=== PATIENT | male | born 1955 | race African-American/Black ===

== ENCOUNTER → 2020-07-21 | Outpatient (CLI) | payer OTHER ==
--- NOTE | 2020-07-21 14:47 | RAD ---
EXAM: Right knee, 2 views. HISTORY: Pain. COMPARISON: None. FINDINGS: 2 views of the right knee are obtained. There is minimal tricompartmental spurring. There i s no fracture, dislocation or subluxation. There is trace joint fluid without a significant effusion. IMPRESSION: Minimal right knee osteoarthritis. Electronically signed by: Demetria Hernández MD (07/21/2020 2:45 PM) [id number]
--- NOTE | 2020-07-21 14:49 | RAD ---
EXAM: Lumbar spine, 2 views. HISTORY: Pain. COMPARISON: None. FINDINGS: 2 views lumbar spine are obtained. There is grade 1 anterolisthesis of L5 on S1. The verteb ral bodies are normal in height. There is disc space narrowing and facet arthropathy at the lumbosacr al junction. There are incidental prostate calcifications and pelvic fluid was. IMPRESSION: 1. Grade 1 anterolisthesis of L5 on S1. 2. Degenerative change at L5-S1. Electronically signed by: Demetria Hernández MD (07/21/2020 2:46 PM) [id number]
--- NOTE | 2020-07-21 17:14 | RAD ---
Study: XR EXAM OF ANKLE_RIGHT 2 VIEWS Indication: Reported broken bone at the ankle. Comparison: None. Findings: A small focus of ossification along the periphery of the medial malleolus appears to be chronic but n o comparison studies are available. No fracture seen at the lateral ankle. Maintained ankle joint mal alignment on this nonweightbearing exam. Small plantar calcaneal spur. Limited assessment for any fractures of the imaged foot. Impression: Small focus of ossification adjacent to the medial malleolus which appears chronic but the acuity is uncertain given the absence of any comparison exams. No malalignment at the ankle or significant arth rosis. Electronically signed by: MAYRA STARK MD (07/21/2020 5:12 PM) [facility]
== END ==
LOC: RAD 11:38
PROVIDERS: ATTEND Surgery
DX: M47.817 Spondylosis without myelopathy or radiculopathy, lumbosacral region (principal); M43.17 Spondylolisthesis, lumbosacral region; M06.9 Rheumatoid arthritis, unspecified; M17.11 Unilateral primary osteoarthritis, right knee
CPT/HCPCS: 72100; 73560; 73600